=== PATIENT | male | born 1940 | race Caucasian/White ===

== ENCOUNTER 2023-10-07 11:28 | Emergency (ER) | payer MEDICARE, BC, SELFPAY ==
[2023-10-07 11:30] VITALS: BP 190/67
[2023-10-07 12:03] VITALS: BP 173/63
--- NOTE | 2023-10-07 12:21 | ED.GENMED ---
History of Present Illness
General
Chief Complaint: Sleep Disturbances
Source: patient
Exam Limitations: none
Time Seen by Provider: 10/07/23 12:05
History of Present Illness
History of Present Illness:
83-year-old male with history of atrial fibrillation has a [employer] pacemaker on Eliquis presents with 10 days to 2 weeks worth of increased difficulty sleeping secondary to increased work of breathing. No prior history of CHF or COPD. He denies
leg swelling or weight gain. He denies a cough. He states his breathing is only improved when he stands straight up. He lives independently at [facility]. He states he recently saw his [employer] consultant and had a pacemaker interrogation and
echocardiogram and EKG everything checked out.
Past History
Past History
ED Past Medical History: Arrthythmia (Atrial fibrillation) and HTN
Social History
Tobacco: Non-smoker
Phy Exam
Physical Exam
Physical Exam:
General: Well appearing male, with increased work of breathing
HEENT: nc/at
Heart: RRR, no murmurs
Lungs: Clear, no wheeze or rales
Abd: soft, nontender, nondistended
Ext: pitting edema b/l LE
Skin: warm, no rashes
Course
Orders/Labs/Results
Orders:
Orders
10/07/23 11:33
EKG [Electrocardiogram (*1)] Urgent
Reason for Study: Shortness of Breath
EKG- Treatment ONCE
10/07/23 12:20
Interrogate Pacemaker- Treatment ONCE
CR Chest - 2 Views Urgent
Comment:
Reason For Exam: sob
10/07/23 12:32
Complete Blood Count/With Diff Urgent
Comprehensive Metabolic Panel Urgent
NT-proBNP Urgent
Troponin I Urgent
10/07/23 15:08
Troponin I Urgent
Abnormal Lab Results
10/07/23 10/07/23
12:32 15:08
RDW 14.8 H %
(11.5-14.5)
MPV 11.5 H fL
(7.4-10.4)
BUN 27 H mg/dl
(9-20)
Glucose 117 H mg/dl
(70-99)
Troponin I 0.081 H* ng/ml 0.088 H* ng/ml
10/07/23 12:32
10/07/23 12:32
Vital Signs
Initial and Last Documented VS:
Initial Vital Signs
Pulse Resp BP Pulse Ox
60 18 190/67 98
10/07/23 11:30 10/07/23 11:30 10/07/23 11:30 10/07/23 11:30
Last Documented Vital Signs
Temp Pulse Resp BP Pulse Ox
97.5 F 60 16 173/63 97
10/07/23 15:28 10/07/23 12:04 10/07/23 12:04 10/07/23 12:03 10/07/23 12:07
Hog Handler consulted with Physician
Hog Handler consulted with physician?: Yes
MDM/Problems Addressed
Differential Diagnosis Includes:
Trouble sleeping secondary to difficulty breathing. Patient has a ventricular paced rhythm on EKG. No prior diagnosis of CHF but on differential today as well as sleep apnea. He tells me he had a normal echocardiogram in the recent past to his
[employer] consultant at [facility]. Anticoagulated. Do not suspect PE. Check labs including BNP and chest today. Pacemaker will be interrogated.
*Critical Care Note
Total Time (30-74mins, 75-104mins- exclusive of procedures): Not Applicable
Update Note
Update Note:
Patient evaluated multiple times. Initial troponin is 0. 081. Repeat troponin was 0.088. No chest pain. No significant delta. Do not suspect ACS. Reviewed x-ray report from radiologist with because of possible mild left lower lobe pneumonia.
When we questioned, the patient is coughing. Question possible involvement here. Nonetheless, patient does not want to stay in the hospital. Will start patient on low-dose of Lasix given the fluid retention 20 mg daily as well as an albuterol
inhaler with doxycycline for pneumonia. She will be given stable for discharge
ED Attending Note
-
Portions of this chart may have been created with voice recognition software.� Occasional wrong word or��sound alike� substitutions may have occurred due to the inherent limitations of voice recognition software.
Discharge Plan
Departure
Patient Disposition: Home (Routine Discharge)
Date of Disposition: 10/07/23
Time of Disposition: 16:25
Patient with high blood pressure during this ER visit?: No
Discharge Problem:
Shortness of breath, Pneumonia
Prescriptions:
New
doxycycline hyclate 100 mg tablet
100 mg PO BID Qty: 14 0RF
furosemide [Lasix] 20 mg tablet
20 mg PO DAILY Qty: 7 0RF
albuterol sulfate 90 mcg/actuation aerosol powdr breath activated
1 inh inhalation QID PRN (Reason: shortness of breath) Qty: 1 0RF
No Action
multivitamin Tablet
1 tab PO DAILY
Eliquis 5 mg tablet
5 mg PO BID
aspirin 81 mg Tablet,Delayed Release (Dr/Ec)
81 mg PO HS
Referrals:
UNKNOWN - PT DOES,NOT KNOW [Family Provider] -
Activity Restrictions/Additional Instructions:
Use antibiotic as directed. Use inhaler if needed. Take Lasix 20 mg once a day. Please follow-up closely with a doctor at your facility. Return if worse.
Interventions
Interventions:
*Risk Screen - Suicide Last Done: 10/07/23 11:30
*General Assessment Last Done: 10/07/23 11:30
*Neglect/Abuse Screening Last Done: 10/07/23 11:30
*ED COVID-19 Vaccine History Last Done: 10/07/23 11:30
ED- Neurological Assessment Last Done: 10/07/23 12:06
ED-Psychological Assessment Last Done: 10/07/23 12:06
Discharge Date and Time
Print Language: CROATIAN
[2023-10-07 12:44] LABS: % Basophils 0.5 % (0-2); % Eosinophils 2.3 % (0-6); % Immature Granulocytes 0.3 % (0-0.5); % Lymphocytes 23.8 % (20.5-51.1); % Monocytes 9.3 % (1.7-9.3); % Neutrophils 63.8 % (42.2-75.2); Absolute Eosinophils 0.2 10^3/uL (0-0.7); Absolute Lymphocytes 1.5 10^3/uL (1.2-3.4); Absolute Monocytes 0.6 10^3/uL (0.1-0.6); Absolute Neutrophils 4.1 10^3/uL (1.4-6.5); Hematocrit 43.1 % (39.0-52.0); Hemoglobin 14.8 g/dL (13.0-18.0); Mean Corp Hgb Conc. 34.3 g/dL (33.0-37.0); Mean Corpuscular Hgb 30.1 pg (27.0-31.0); Mean Corpuscular Volume 87.8 fL (80.0-94.0); Mean Platelet Volume 11.5 fL (7.4-10.4); Nucleated Red Blood Cells % 0 % (-); Platelet Count 173 10^3/uL (130-400); Red Blood Cell Count 4.91 10^6/uL (4.70-6.10); Red Cell Dist. Width 14.8 % (11.5-14.5); White Blood Cell Count 6.4 10^3/uL (4.8-10.8)
[2023-10-07 13:00] LABS: ALT (SGPT) 26 U/L (0-50); AST (SGOT) 45 U/L (17-59); Albumin 4.1 g/dl (3.5-5.0); Alkaline Phosphatase 96 U/L (38-126); Blood Urea Nitrogen 27 mg/dl (9-20); Calcium 9.5 mg/dl (8.4-10.2); Carbon Dioxide 26 mmol/L (22-30); Chloride 103 mmol/L (98-107); Glucose 117 mg/dl (70-99); Potassium 4.6 mmol/L (3.5-5.1); Sodium 135 mmol/L (135-145); Total Protein 6.5 g/dl (6.3-8.2); eGFR > 60.00
[2023-10-07 13:19] LABS: NT-proBNP 3550 pg/ml
[2023-10-07 13:29] LABS: Troponin I 0.081 ng/ml
[2023-10-07 15:08] VITALS: BP 180/72
[2023-10-07 15:50] LABS: Troponin I 0.088 ng/ml
[2023-10-07 16:00] VITALS: BP 164/60
[2023-10-07] MEDS: VIBRAMYCIN 100 MG PO (16:59)
== END 2023-10-07 17:16 | disposition home or self-care (01) ==
LOC: EMR 11:28
PROVIDERS: Physician Assistant; EMERGENCY PHYSICIAN Emergency Medicine
DX: R06.02 Shortness of breath (principal); J18.9 Pneumonia, unspecified organism; G47.00 Insomnia, unspecified; I48.91 Unspecified atrial fibrillation; I10 Essential (primary) hypertension; Z79.01 Long term (current) use of anticoagulants; Z95.0 Presence of cardiac pacemaker
CPT/HCPCS: 99283; 71046; 80053; 83880; 84484; 85025; 93005

== ENCOUNTER 2023-10-15 16:06 | Inpatient (IN) | payer MEDICARE, BC, SELFPAY ==
[2023-10-15 11:37] VITALS: BP 169/60
--- NOTE | 2023-10-15 12:16 | ED.GENMED ---
History of Present Illness
<Elizabeth Woodward PA-C - Last Filed: 10/15/23 20:09>
General
Chief Complaint: Breathing Problem
Source: patient
Exam Limitations: none
Time Seen by Provider: 10/15/23 11:42
Nursing documentation reviewed up to this point in time: agreed with
History of Present Illness
History of Present Illness:
Patient is an 83-year-old male history atrial fibrillation on Eliquis, hypertension, CAD status post stents with a pacemaker presenting for evaluation of shortness of breath worse when lying flat. Patient states symptoms been ongoing for the past 2
weeks and describes difficulty breathing and waking up 'gasping for air 'in the middle the night. Symptoms do definitely seem worse when he is lying flat or sitting and better while he is walking around. Patient was recently here about a week ago
with similar symptoms where a small left-sided pneumonia was discovered. He was discharged on a course of antibiotics and low-dose Lasix. Patient states that symptoms have remained unchanged.
Patient denies any associated chest pain, fever, chills, cough, dizziness, weight changes. No known history of heart failure.
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
Past History
<Elizabeth Woodward PA-C - Last Filed: 10/15/23 20:09>
Past History
ED Past Medical History: Arrthythmia (Atrial fibrillation) and HTN
Social History
Tobacco: Non-smoker
Review of Systems
<Elizabeth Woodward PA-C - Last Filed: 10/15/23 20:09>
Review of Systems
Allergies reviewed?: Yes
All Other Systems: ROS reviewed and negative except as documented in HPI and ROS
Phy Exam
<Elizabeth Woodward PA-C - Last Filed: 10/15/23 20:09>
Physical Exam
Physical Exam:
Vitals: Patient's vital signs are stable. Afebrile
General: Patient is well appearing, no acute distress
Skin: Warm and dry, no rashes or lesions
Head: Normocephalic, atraumatic
Eyes: Sclera nonicteric. EOMs intact. No nystagmus.
Throat: Protecting airway
Neck: Normal ROM, no cervical spine tenderness, no meningismus. No JVD
Cardiac: Regular rate and rhythm, no murmurs.
Pulm: Mildly increased work of breathing. Oxygen saturation 98 on room air. Scattered fine crackles at bilateral bases otherwise lungs clear.
Abdomen: No abdominal tenderness.
Extremities: 1+ pitting edema bilateral lower extremities. Great distal pulses.
Neuro: AAOx3. CN II-XII intact. No focal neurologic deficits.
Psychiatric: Normal affect.
Scores
<Elizabeth Woodward PA-C - Last Filed: 10/15/23 20:09>
Heart Failure Risk
Heart Failure Risk Score: Yes
History of Stroke or TIA: No
History of intubation for respiratory distress: No
Heart rate on ED arrival >/= 110: No
SaO2 <90% on arrival on room air: No
HR >/=110 during 3min walk test (or too ill to perform test): No
ECG has acute ischemic changes: No
Urea >/=12mmol/L (BUN 33.6mg/dL): No
Serum CO2>/=35mmol/L: No
Troponin I or T elevated to IL Level (0.4mg/dL): No
NT-proBNP >/=5,000ng/L (5,000pg/ml): No
HF Risk Score: 0
Admission Status: LOW RISK 2.8% Consider discharge to home with f/u visit to PCP/Installation Technician
Course
<Elizabeth Woodward PA-C - Last Filed: 10/15/23 20:09>
Orders/Labs/Results
Orders:
Orders
10/15/23 11:41
Electrocardiogram (*1) Urgent
Reason for Study: Shortness of Breath
EKG- Treatment ONCE
10/15/23 12:03
Interrogate Pacemaker- Treatment ONCE
10/15/23 12:04
CR Chest - 2 Views Urgent
Comment:
Reason For Exam: shortness of breath
10/15/23 12:44
Complete Blood Count/With Diff Urgent
Comprehensive Metabolic Panel Urgent
NT-proBNP Urgent
Troponin I Urgent
10/15/23 13:26
Azithromycin 500 mg/250 ml [Zithromax Infusion] 500 mg in 250 ml IV NOW
CefTRIAXone [Rocephin] 1,000 mg IV NOW STA
Furosemide [Lasix] 40 mg IV NOW STA
10/15/23 Dinner
Cholesterol Lowering
At Your Request: Full Participation
Does patient need a safe tray?: No
Cholesterol Lowering: Sodium, 2 Gram
10/15/23 15:29
Admit/Transfer Patient As Directed
Co-Sign Provider:
Level of Care: Inpatient admission
Assign to:: Telemetry
Physician / Group: Hospitalist
Diagnosis: Respiratory distress
Reason for Telemetry: Subacute Heart Failure
Date to Stop Telemetry: 10/17/23
Time to Stop Telemetry: 11:00
Reason for Hospitalization: respiratory distress
Expected length of stay greater than two midnights?: Yes
ELOS- Estimated Length of Stay in days: 3
I certify the patient meets the requirements for IP care: Yes
10/15/23 15:30
PRN Pain Medication Management As Directed
May give lesser potent ordered pain med per pt: Yes
preference::
Protocol:: Medication orders for pain may be administered in a
manner that supports deferring to patient preference
when the pt is:
- Requesting an ordered lesser potent pain medication.
Least to most potent pain medications are defined
as: acetaminophen < NSAID < tramadol < opioids
(morphine, oxycodone, hydromorphone).
- Requesting a lesser dose of the same medication IF
ORDERED.
- Requesting a less intrusive route of administration
if both routes are prescribed by the provider (PO <
IV).
10/15/23 15:31
Code Status As Directed
Resuscitation Status: Full Code
10/15/23 16:07
COVID-19 Antigen Urgent
Source: Nasal Swab
Procalcitonin Urgent
PCT Algorithmm Indication: Respiratory
Influenza A+B Rapid Molecular Urgent
RICARDO Source: Nasal Swab
Specimen Description:
10/15/23 17:45
HF DIETARY CONSULT Routine
HF EDUCATOR CONSULT Routine
Comment:
Activity As Directed
Activity Level: With Assistance
Intake/ Output As Directed
Frequency: Per unit guidelines
Patient Education As Directed
Type: CHF folder
Comment: give on admission. Document in Interdisciplinary Education record
Pneumatic Compression Sleeves As Directed
Type: Knee high
Sleep Apnea Assessment by RN As Directed
Comment:
Physician Instructions:
Vital Signs As Directed
Frequency: Other
Additional Instructions:: Q12 or per unit guidelines if more frequent.
Weight As Directed
Frequency: Daily
Type of Scale: Standing Scale
Comment: Daily morning weight. If unable to stand, use balanced bed scale.
Weight As Directed
Frequency: Once
Type of Scale: Standing Scale
Comment: Upon Admission. If unable to stand, use balanced bed scale.
Pulse Ox/cont/shift [RESP] Routine
Quantity: 1
Special Instructions: Daily pulse oximetry at rest. If greater than 92% at rest also obtain pulse oximetry
while ambulating as tolerated.
DX Deep Vein Thrombosis Video Routine
10/15/23 17:57
Troponin I Q6H
Comment: at admission & every 6 hours x 2 (3 total), ECG to be done with each level
10/15/23 18:00
Furosemide [Lasix] 40 mg IV BID AT 0800,1600
10/15/23 20:00
Apixaban [Eliquis] 5 mg PO BID
10/15/23 23:45
Troponin I Q6H
Comment: at admission & every 6 hours x 2 (3 total), ECG to be done with each level
10/16/23 05:45
Troponin I Q6H
Comment: at admission & every 6 hours x 2 (3 total), ECG to be done with each level
10/16/23 06:00
Echo 2D MMode Color/Doppler IN AM
Reason for Study: heart failure
Basic Metabolic Panel IN AM
Cardiovascular Evaluation IN AM
Complete Blood Count/No Diff IN AM
Magnesium IN AM
TSH Reflex To Free T4 IN AM
10/16/23 08:00
Multivitamin [Theragran] 1 tablet PO DAILY
10/17/23 06:00
Basic Metabolic Panel IN AM
10/17/23 11:00
DC Protocol for Telemetry ONCE
10/18/23 06:00
Basic Metabolic Panel IN AM
Abnormal Lab Results
10/15/23
12:44
RBC 4.58 L 10^6/uL
(4.70-6.10)
Absolute Monos (auto) 0.7 H 10^3/uL
(0.1-0.6)
Immature Gran % 0.7 H %
(0-0.5)
Monocytes % 10.8 H %
(1.7-9.3)
BUN 27 H mg/dl
(9-20)
Glucose 118 H mg/dl
(70-99)
Troponin I 0.087 H* ng/ml
Total Protein 5.8 L g/dl
(6.3-8.2)
10/15/23 12:44
10/15/23 12:44
Vital Signs
Initial and Last Documented VS:
Initial Vital Signs
Temp Pulse Resp BP Pulse Ox
97.5 F 61 18 169/60 98
10/15/23 11:37 10/15/23 11:37 10/15/23 11:37 10/15/23 11:37 10/15/23 11:37
Last Documented Vital Signs
Temp Pulse Resp BP Pulse Ox
97.8 F 61 18 148/52 95
10/15/23 19:52 10/15/23 19:52 10/15/23 19:52 10/15/23 19:52 10/15/23 19:52
<Jamshid Benites, DO - Last Filed: 10/15/23 12:39>
Orders/Labs/Results
Orders:
Orders
10/15/23 11:41
Electrocardiogram (*1) Urgent
Reason for Study: Shortness of Breath
EKG- Treatment ONCE
10/15/23 12:03
Interrogate Pacemaker- Treatment ONCE
10/15/23 12:04
CR Chest - 2 Views Urgent
Comment:
Reason For Exam: shortness of breath
10/15/23 12:44
Complete Blood Count/With Diff Urgent
Comprehensive Metabolic Panel Urgent
NT-proBNP Urgent
Troponin I Urgent
10/15/23 13:26
Azithromycin 500 mg/250 ml [Zithromax Infusion] 500 mg in 250 ml IV NOW
CefTRIAXone [Rocephin] 1,000 mg IV NOW STA
Furosemide [Lasix] 40 mg IV NOW STA
10/15/23 Dinner
Cholesterol Lowering
At Your Request: Full Participation
Does patient need a safe tray?: No
Cholesterol Lowering: Sodium, 2 Gram
10/15/23 15:29
Admit/Transfer Patient As Directed
Co-Sign Provider:
Level of Care: Inpatient admission
Assign to:: Telemetry
Physician / Group: Hospitalist
Diagnosis: Respiratory distress
Reason for Telemetry: Subacute Heart Failure
Date to Stop Telemetry: 10/17/23
Time to Stop Telemetry: 11:00
Reason for Hospitalization: respiratory distress
Expected length of stay greater than two midnights?: Yes
ELOS- Estimated Length of Stay in days: 3
I certify the patient meets the requirements for IP care: Yes
10/15/23 15:30
PRN Pain Medication Management As Directed
May give lesser potent ordered pain med per pt: Yes
preference::
Protocol:: Medication orders for pain may be administered in a
manner that supports deferring to patient preference
when the pt is:
- Requesting an ordered lesser potent pain medication.
Least to most potent pain medications are defined
as: acetaminophen < NSAID < tramadol < opioids
(morphine, oxycodone, hydromorphone).
- Requesting a lesser dose of the same medication IF
ORDERED.
- Requesting a less intrusive route of administration
if both routes are prescribed by the provider (PO <
IV).
10/15/23 15:31
Code Status As Directed
Resuscitation Status: Full Code
10/15/23 16:07
COVID-19 Antigen Urgent
Source: Nasal Swab
Procalcitonin Urgent
PCT Algorithmm Indication: Respiratory
Influenza A+B Rapid Molecular Urgent
RICARDO Source: Nasal Swab
Specimen Description:
10/15/23 17:45
HF DIETARY CONSULT Routine
HF EDUCATOR CONSULT Routine
Comment:
Activity As Directed
Activity Level: With Assistance
Intake/ Output As Directed
Frequency: Per unit guidelines
Patient Education As Directed
Type: CHF folder
Comment: give on admission. Document in Interdisciplinary Education record
Pneumatic Compression Sleeves As Directed
Type: Knee high
Sleep Apnea Assessment by RN As Directed
Comment:
Physician Instructions:
Vital Signs As Directed
Frequency: Other
Additional Instructions:: Q12 or per unit guidelines if more frequent.
Weight As Directed
Frequency: Daily
Type of Scale: Standing Scale
Comment: Daily morning weight. If unable to stand, use balanced bed scale.
Weight As Directed
Frequency: Once
Type of Scale: Standing Scale
Comment: Upon Admission. If unable to stand, use balanced bed scale.
Pulse Ox/cont/shift [RESP] Routine
Quantity: 1
Special Instructions: Daily pulse oximetry at rest. If greater than 92% at rest also obtain pulse oximetry
while ambulating as tolerated.
DX Deep Vein Thrombosis Video Routine
10/15/23 17:57
Troponin I Q6H
Comment: at admission & every 6 hours x 2 (3 total), ECG to be done with each level
10/15/23 18:00
Furosemide [Lasix] 40 mg IV BID AT 0800,1600
10/15/23 20:00
Apixaban [Eliquis] 5 mg PO BID
10/15/23 23:45
Troponin I Q6H
Comment: at admission & every 6 hours x 2 (3 total), ECG to be done with each level
10/16/23 05:45
Troponin I Q6H
Comment: at admission & every 6 hours x 2 (3 total), ECG to be done with each level
10/16/23 06:00
Echo 2D MMode Color/Doppler IN AM
Reason for Study: heart failure
Basic Metabolic Panel IN AM
Cardiovascular Evaluation IN AM
Complete Blood Count/No Diff IN AM
Magnesium IN AM
TSH Reflex To Free T4 IN AM
10/16/23 08:00
Multivitamin [Theragran] 1 tablet PO DAILY
10/17/23 06:00
Basic Metabolic Panel IN AM
10/17/23 11:00
DC Protocol for Telemetry ONCE
10/18/23 06:00
Basic Metabolic Panel IN AM
Abnormal Lab Results
10/15/23
12:44
RBC 4.58 L 10^6/uL
(4.70-6.10)
Absolute Monos (auto) 0.7 H 10^3/uL
(0.1-0.6)
Immature Gran % 0.7 H %
(0-0.5)
Monocytes % 10.8 H %
(1.7-9.3)
BUN 27 H mg/dl
(9-20)
Glucose 118 H mg/dl
(70-99)
Troponin I 0.087 H* ng/ml
Total Protein 5.8 L g/dl
(6.3-8.2)
10/15/23 12:44
10/15/23 12:44
Vital Signs
Initial and Last Documented VS:
Initial Vital Signs
Temp Pulse Resp BP Pulse Ox
97.5 F 61 18 169/60 98
10/15/23 11:37 10/15/23 11:37 10/15/23 11:37 10/15/23 11:37 10/15/23 11:37
Last Documented Vital Signs
Temp Pulse Resp BP Pulse Ox
97.8 F 61 18 148/52 95
10/15/23 19:52 10/15/23 19:52 10/15/23 19:52 10/15/23 19:52 10/15/23 19:52
<Elizabeth Woodward PA-C - Last Filed: 10/15/23 20:09>
MDM/Problems Addressed
Differential Diagnosis Includes:
Not limited to: Acute CHF, cardiac arrhythmia, pleural effusion, pneumonia, pericarditis, pneumothorax, doubt ACS or PE
MDM/Problems Addressed:
83-year-old male with history as documented presenting with persistent shortness of breath over the past few weeks worse when lying flat. Recently in emergency department 1 week ago and discharged with course of doxycycline after left lower lobe
pneumonia was noted. Patient denies any fever, chills�very occasional cough. No history of heart failure per patient. Patient is hypertensive, otherwise vital signs are stable on arrival. He is afebrile. His oxygenation is 90% on room air.
Physical exam as above. Patient is relatively well-appearing, appears in no apparent respiratory distress. Heart regular rate and rhythm. Fine crackles noted at the bases of his lungs bilaterally otherwise clear. He does have 1+ pitting edema of
his bilateral lower extremities. Labs initiated. No leukocytosis. Chemistry without any clinically significant abnormalities. Troponin was found to be mildly elevated at 0.087�which appears to be stable and chronic. Do not suspect ACS. BNP
elevated at 4060. Will obtain chest x-ray. Will interrogate pacemaker.
Chest x-ray noted. Cardiomegaly stable. Left lower lobe pneumonia slightly increased since prior chest x-ray 7 days ago. Patient without any infectious symptoms currently. Clinically I do feel symptoms are more consistent with a mild CHF
exacerbation. Although given findings on chest x-ray consistent with worsening pneumonia failing outpatient therapy�will admit patient for IV antibiotics, diuresis and further management. Will start patient on IV Rocephin/azithromycin. Will give
40 IV Lasix in emergency department. Discussed with hospitalist. Patient seen with attending physician
Chronic conditions affecting care:
Atrial fibrillation on Eliquis, CAD, hypertension
Acute Exacerbation and/or Progression of Chronic Illness:
Acutely hypertensive
<Elizabeth Woodward PA-C - Last Filed: 10/15/23 20:09>
*Radiology
Radiology exam reviewed: preliminary read by ED provider and radiology read reviewed (Left lower lobe pneumonia slightly increased)
*Pulse Oximetry
Patient hypoxic: no
*EKG
Interpreted by ED Provider?: Yes
EKG Intrepretation Date: 10/15/23
Interpretation: abnormal
Comparison EKG: no changes
Heart Rate: 60
Rate: normal
Rhythm: ventricular paced
Ischemia: no ischemia
*Production Expert Interpretation
Rate: normal
Interpretation: normal
Heart Rate: 60
Rhythm: ventricular paced
*Critical Care Note
Total Time (30-74mins, 75-104mins- exclusive of procedures): Not Applicable
Data Reviewed
Review of Other/Old Records Reveals: Labs (Troponin from 10/06 of 0.088. proBNP from 10/06 of 3550.), Records (Emergency department visit from 10/06. Diagnosed with left lower lobe pneumonia discharged with p.o. antibiotics and few days of
low-dose Lasix for possible CHF component) and Radiology Studies (Chest x-ray showing left lower lobe pneumonia from 10/06)
Source: previous hospital records
<Elizabeth Woodward PA-C - Last Filed: 10/15/23 20:09>
Patient Management
Discussion with other providers: Hospitalist
Escalation/DeEscalation of care consider admission/obs:
Admit for IV antibiotics, diuresis. Further evaluation of possible new onset acute CHF
ED Attending Note
<Elizabeth Woodward PA-C - Last Filed: 10/15/23 20:09>
-
Portions of this chart may have been created with voice recognition software.� Occasional wrong word or��sound alike� substitutions may have occurred due to the inherent limitations of voice recognition software.
<Jamshid Benites DO - Last Filed: 10/15/23 12:39>
ED Attending Note
Patient seen and examined by attending physician: Yes
I performed the substantive portion of visit, reviewed & personally made and approve the management plan that is documented in note by myself or RENEE.: Yes
I performed a history and physical exam of patient and discussed management with resident, I reviewed resident's note and agree with documented findings and plan of care.: Yes
ED Attending Note:
I evaluated the patient bedside. The patient has some faint rales. He reports some mild lower extremity edema that he is not concerned about but has no weight gain�he has had some weight loss. He cannot sleep because of the fact that he cannot
lay down flat at night. He reports no significant improvement after doxycycline was tried.
Discharge Plan
Departure
Patient Disposition: Admit
Date of Disposition: 10/15/23
Time of Disposition: 13:32
Presentation/result/management discussed w/ accepting MD/DO: Hospitalist
Discharge Problem:
Acute CHF (congestive heart failure), Left lower lobe pneumonia
Interventions
Interventions:
*Risk Screen - Suicide Last Done: 10/15/23 11:37
*General Assessment Last Done: 10/15/23 11:37
*Neglect/Abuse Screening Last Done: 10/15/23 11:37
ED- Fall Risk Assessment Last Done: 10/15/23 12:48
*ED COVID-19 Vaccine History Last Done: 10/15/23 12:47
*Nursing Disposition Last Done: 10/15/23 17:58
ED- Cardiac Assessment Last Done: 10/15/23 12:48
ED- Pulmonary Assessment Last Done: 10/15/23 12:48
Discharge Date and Time
Discharge Date/Time: 10/15/23 17:59
[2023-10-15 12:42] VITALS: BP 159/62
[2023-10-15 12:46] VITALS: BMI 23.8
[2023-10-15 12:54] LABS: % Basophils 0.5 % (0-2); % Eosinophils 1.3 % (0-6); % Immature Granulocytes 0.7 % (0-0.5); % Lymphocytes 25.5 % (20.5-51.1); % Monocytes 10.8 % (1.7-9.3); % Neutrophils 61.2 % (42.2-75.2); Absolute Eosinophils 0.1 10^3/uL (0-0.7); Absolute Lymphocytes 1.5 10^3/uL (1.2-3.4); Absolute Monocytes 0.7 10^3/uL (0.1-0.6); Absolute Neutrophils 3.7 10^3/uL (1.4-6.5); Hematocrit 39.8 % (39.0-52.0); Hemoglobin 13.8 g/dL (13.0-18.0); Mean Corp Hgb Conc. 34.7 g/dL (33.0-37.0); Mean Corpuscular Hgb 30.1 pg (27.0-31.0); Mean Corpuscular Volume 86.9 fL (80.0-94.0); Mean Platelet Volume 10.3 fL (7.4-10.4); Nucleated Red Blood Cells % 0 % (-); Platelet Count 161 10^3/uL (130-400); Red Blood Cell Count 4.58 10^6/uL (4.70-6.10); Red Cell Dist. Width 14.5 % (11.5-14.5)
[2023-10-15 13:03] LABS: ALT (SGPT) 23 U/L (0-50); AST (SGOT) 42 U/L (17-59); Albumin 3.5 g/dl (3.5-5.0); Alkaline Phosphatase 77 U/L (38-126); Blood Urea Nitrogen 27 mg/dl (9-20); Calcium 9.4 mg/dl (8.4-10.2); Carbon Dioxide 29 mmol/L (22-30); Chloride 103 mmol/L (98-107); Estimated Creatinine Clearance 53 ml/min; Glucose 118 mg/dl (70-99); Potassium 4.4 mmol/L (3.5-5.1); Sodium 135 mmol/L (135-145); Total Bilirubin 0.7 mg/dl (0.2-1.3); Total Protein 5.8 g/dl (6.3-8.2); eGFR 59.63
[2023-10-15 13:19] LABS: NT-proBNP 4060 pg/ml; Troponin I 0.087 ng/ml
[2023-10-15] MEDS: ROCEPHIN 1000 MG IV (14:53)
[2023-10-15] MEDS: LASIX 40 MG IV ×2 (14:54→18:21)
[2023-10-15] MEDS: ZITHROMAX INFUSION 250 IV (14:54)
--- NOTE | 2023-10-15 15:08 | HPS.HSE ---
Family Physician
-
Family Physician: * NONE
Chief Complaint
-
Difficulty breathing
History of Present Illness
83-year-old man with a history of atrial fibrillation on Eliquis, essential hypertension, CAD (status post stents with a pacemaker) comes in for evaluation of shortness of breath, worse when lying flat. He states that the symptoms have been ongoing
for the past 2 weeks, and he describes difficulty breathing, waking up 'gasping for air 'in the middle the night. He said he has not had reasonable sleep in 2 weeks. His symptoms are worse when he is lying flat or sitting and better while he is
walking around. He was recently here at about a week ago with similar symptoms. At that visit a small left-sided pneumonia was discovered. He was discharged on a course of oral antibiotics (doxy) and low-dose Lasix. He states that his
symptoms have remained unchanged. He denies any associated chest pain, fever, chills, cough, dizziness, weight changes. No known history of heart failure, but his daughter believes he likely has Chronic undiagnosed CHF. At the time of the
interview he was conversant and pleasant. He did not appear to be in distress.
Medical History
Past Medical History
Past Medical History: Reports Other
Additional Past Medical History:
Arrthythmia (Atrial fibrillation)
essential HTN
recent Dx of LLL PNA
Sepsis, unspecified organism
Bradyarrhythmia
Aortic root dilatation
PVCs (premature ventricular contractions)
CAD (coronary artery disease)
Aortic insufficiency
Carotid atherosclerosis
Mobitz type 1 second degree AV block
Stented coronary artery
Cardiac pacemaker in situ
Paroxysmal atrial fibrillation
Lower extremity edema
Hyperlipidemia
AV block, 3rd degree
Pacemaker
Renal insufficiency
Past Surgical History: Reports Other
Additional Past Surgical History:
See above
Social History
Tobacco: Non-smoker
Alcohol: None
Drug: None
Family History
Family History: Not pertinent
Allergies / Home Medications
Allergies reflects when Allergies were last updated in [facility].
Home Medications with original date entered in [facility]
Allergy/Medication List:
Allergies
Allergy/AdvReac Type Severity Reaction Status Date / Time
No Known Allergies Allergy Verified 10/07/23 11:30
Home Medications
apixaban 5 mg tablet (Eliquis) 5 mg PO BID 02/16/23
multivitamin 1 tab PO DAILY 02/16/23
doxycycline hyclate 100 mg tablet 100 mg PO BID #14 tabs 10/07/23
fexofenadine-pseudoephedrine ER 180 mg-240 mg tablet,ext.release 24 hr (Brittany-D 24 Hour) 1 tab PO DAILYPRN PRN chest congestion 10/15/23
ibuprofen 200 mg tablet (Advil) 400 mg PO Q8HPRN PRN mild pain 10/15/23
Review of Systems
-
History Source: Patient
A 12 point ROS was completed and negative except as noted: Yes
Physical Exam
Vital Signs
Vital Signs
Temp Pulse Resp BP Pulse Ox
97.5 F 60 19 159/62 97
10/15/23 11:37 10/15/23 14:34 10/15/23 14:34 10/15/23 12:42 10/15/23 13:30
Physical Exam
General: Well Developed, Well Nourished, No Apparent Distress, Comfortable and Conversant
HEENT: No Ptosis, Nose Appears Normal and Ears Appear Normal
Respiratory: Clear and Decreased Breath Sounds
Cardiac: S1/S2, Irregular Rhythm and Murmur
GI: Soft, Non Tender and Non Distended
Musculoskeletal: No Clubbing, No Cyanosis, Edema, Left Lower Extremity and Edema, Right Lower Extremity
Skin: Warm, Dry and Rash (purple stippling LE, likely venous stasis)
Neuro: Awake, Alert, Oriented and AO x 3
Psych: Calm
Laboratory Results
-
10/15/23 12:44
10/15/23 12:44
Laboratory Results
Total Bilirubin 0.7 mg/dl (0.2-1.3) 10/15/23 12:44
AST 42 U/L (17-59) 10/15/23 12:44
ALT 23 U/L (0-50) 10/15/23 12:44
Alkaline Phosphatase 77 U/L (38-126) 10/15/23 12:44
Troponin I 0.087 ng/ml H* 10/15/23 12:44
Data Reviewed
-
Lab Data: Labs Reviewed by me
Impression/Plan
-
IMPRESSION:
83 man with respiratory distress. Significant finding:
BUN/Creat 27/1.2
Troponin 0/087
BNP 4,000
CXR: Slightly increased left lower lobe pneumonia. Trace effusion.
ECG: Ventricular-paced rhythm
UNDERLYING RHYTHM is atrial fibrillation
ABNORMAL ECG
WHEN COMPARED WITH ECG OF 07-OCT-2023 12:08,
NO SIGNIFICANT CHANGE WAS FOUND
PLAN:
1. Respiratory distress, no fever, no WBC increase, elevated BNP - CHF more likely than PNA
Check pro-margi
Check echo
cycle troponins
Lasix given in ED, continue lasix
If pro-margi low, no need to continue abx
2. Elevated troponin - likely from CHF/renal failure
Cycle overnight
Telemetry
If remains in same level, outpatient management
3. Afib - continue eliquis
4. BUN/Creat > 20
Hold ibuprofen in setting of getting lasix
5. Complex PMH as described above
Follow daily, and keep in mind the following diagnoses:
essential HTN
recent Dx of LLL PNA
Past Sepsis, unspecified organism
Bradyarrhythmia
Aortic root dilatation
PVCs (premature ventricular contractions)
CAD (coronary artery disease)
Aortic insufficiency
Carotid atherosclerosis
Mobitz type 1 second degree AV block
Stented coronary artery
Cardiac pacemaker in situ
Paroxysmal atrial fibrillation
Lower extremity edema
Hyperlipidemia
AV block, 3rd degree
Pacemaker
Renal insufficiency
Full code
VCD for DVTp
[2023-10-15 16:45] LABS: COVID-19 Antigen Negative (Negative)
[2023-10-15 16:57] LABS: Procalcitonin < 0.05 ng/ml (0.0-0.25)
[2023-10-15 17:50] VITALS: BMI 23.8
[2023-10-15 18:17] VITALS: BMI 23.8
[2023-10-15 18:27] VITALS: BP 165/63
[2023-10-15 18:28] VITALS: BMI 23.8
[2023-10-15 18:39] LABS: Troponin I 0.096 ng/ml
[2023-10-15 19:52] VITALS: BP 148/52
[2023-10-15] MEDS: ELIQUIS 5 MG PO (20:04)
[2023-10-15 23:54] LABS: Troponin I 0.086 ng/ml
[2023-10-16] VITALS (7 sets, daily range): BP systolic 134–176; BP diastolic 43–63; BMI 23.0
[2023-10-16] MEDS: MELATONIN 5 MG PO ×2 (00:47→21:00)
[2023-10-16 07:20] LABS: Hematocrit 43.1 % (39.0-52.0); Hemoglobin 15.2 g/dL (13.0-18.0); Mean Corp Hgb Conc. 35.3 g/dL (33.0-37.0); Mean Corpuscular Hgb 30.9 pg (27.0-31.0); Mean Corpuscular Volume 87.6 fL (80.0-94.0); Mean Platelet Volume 11.5 fL (7.4-10.4); Platelet Count 173 10^3/uL (130-400); Red Blood Cell Count 4.92 10^6/uL (4.70-6.10); Red Cell Dist. Width 14.1 % (11.5-14.5); White Blood Cell Count 6.8 10^3/uL (4.8-10.8)
[2023-10-16 07:41] LABS: Troponin I 0.104 ng/ml
[2023-10-16 07:45] LABS: Blood Urea Nitrogen 30 mg/dl (9-20); Calcium 9.6 mg/dl (8.4-10.2); Carbon Dioxide 30 mmol/L (22-30); Chloride 100 mmol/L (98-107); Estimated Creatinine Clearance 53 ml/min; Glucose 91 mg/dl (70-99); HDL Cholesterol 47 mg/dl; LDL Cholesterol, Calculated 102 mg/dl; Potassium 4.2 mmol/L (3.5-5.1); Sodium 136 mmol/L (135-145); Total Cholesterol 162 mg/dl (50-199); Triglyceride 69 mg/dl (10-149); Very Low Density Lipoprotein 13 mg/dl (0-30); eGFR 59.63
[2023-10-16 08:15] LABS: TSH Reflex To Free T4 2.62 uIU/ml (0.47-4.68)
[2023-10-16] MEDS: THERAGRAN 1 TABLET PO (09:50)
[2023-10-16] MEDS: ELIQUIS 5 MG PO ×2 (09:50→21:00)
[2023-10-16] MEDS: LASIX 40 MG IV ×2 (09:50→16:55)
[2023-10-16] MEDS: FLUSH (NSS) 1 FLUSH IV ×3 (09:51→16:55)
[2023-10-16] MEDS: UNASYN IV ×3 (10:21→22:37)
--- NOTE | 2023-10-16 13:15 | W.PN.HOSP.TC ---
Today's Communication/Plan
-
IV diuretics
Unasyn for empiric abx therapy
Cards Consult
Trend trops until peak
Assessment / Plan
Assessment / Plan
Physical Exam
General: Well Developed, Well Nourished, No Apparent Distress, Comfortable and Conversant
HEENT: No Ptosis, Nose Appears Normal and Ears Appear Normal
Respiratory: Clear and Decreased Breath Sounds
Cardiac: S1/S2, Irregular Rhythm and Murmur
GI: Soft, Non Tender and Non Distended
Musculoskeletal: No Clubbing, No Cyanosis, Edema, Left Lower Extremity and Edema, Right Lower Extremity
Skin: Warm, Dry and Rash (purple stippling LE, likely venous stasis)
Neuro: Awake, Alert, Oriented and AO x 3
Psych: Calm
#Acute HFpEF
#Pleural Effusion
-IV Lasix 40mg daily
-ECHO: 50-55%, Moderate to severe LVH
-Cards Consulted
#Elevated Troponin
-Most likely nonischemic myocardial injury secondary to acute HFpEF
� Continue to monitor with diuresis
� No chest pain
� No regional wall motion abnormalities on echo
� May benefit from stress test outpatient
#?Pneumonia
-empiric abx - Unasyn x 5 day course of abx
-Incentive [place]
#Afib
#PPM, Hx of 3rd degree AV block
-Cont Eliquis
-Rate under control
#CAD
-on eliquis, i do not see any antiplatelet regimen on med rec
-f/u cards outpatient
#DVT ppx
-Eliquis
Total time spent on today's encounter was 50 minutes which included time spent in counseling the patient/family regarding diagnosis and treatment plan as listed above, goals of care, and symptom management. Case was discussed with nursing staff,
specialists, and care coordinators/case management. All labs and imaging personally reviewed by me. Remainder the time spent in detailed review of previous records, lab data, imaging, and other medical provider documentation.
Anticipated Discharge: 24 - 48 hours
Subjective/Interval History
-
Date of Service: October 16, 2023
feels better
Objective Data
-
Labs:
Laboratory Results
10/16/23
06:36
WBC 6.8
Hgb 15.2
Hct 43.1
Plt Count 173
Sodium 136
Potassium 4.2
Chloride 100
Carbon Dioxide 30
BUN 30 H
Creatinine 1.2
Glucose 91
Calcium 9.6
Vital Signs:
Vital Signs
Temp Pulse Resp BP Pulse Ox
97.5 F 61 18 156/60 98
10/16/23 11:36 10/16/23 11:36 10/16/23 11:36 10/16/23 11:36 10/16/23 11:36
I&O
10/15/23 10/16/23 10/17/23
06:59 06:59 06:59
Intake Total 580 / 580
Output Total 150 / 150
Balance 430 / 430
Review of Systems
-
History Source: Patient
All other systems: Not reviewed unless documented
Data Reviewed
-
Diagnostic Radiology: Image personally visualized and interpreted and Report Reviewed by me
Medical Tests (Nuc Med, Echo etc): Image personally visualized and interpreted and Report Reviewed by me
Labs: Labs Reviewed by me
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
--- NOTE | 2023-10-16 15:25 | CM ---
Alert awake oriented patient who lives alone at [facility] independent living. He is independent in driving and all activities of daily living.He has supportive daughters Elinor ([place] [employer]) and Lakeisha . Offered Vn he declined.
No VN hx /No SNF hx
No adaptive devices.
Pharmacy [facility]
PCP Does not have on PCP list given
PLAN Home no anticipated needs
--- NOTE | 2023-10-16 15:56 | PTCARENOTE ---
Pt AAO x3, LEIGH well, ambulatory in room, chian well. VSS. Telemetry:Afib with V-pacing. On room air- pulse ox 94%, pt with (+) slight BACON; denies SOB/cough. Encouraging use od IS q 1 hr while awake; pt compliant. Abd soft, rounded, china PO well.
Voiding large amts clear yellow urine in urinal. Resting in bed at present, no c/o. Will continue to monitor.
[2023-10-16] MEDS: KCL 20 MEQ PO (16:55)
[2023-10-16] MEDS: ASPIR LOW (ENTERIC COATED) 81 MG PO (16:55)
[2023-10-16] MEDS: LIPITOR 20 MG PO (18:14)
[2023-10-16] MEDS: FLUSH (NSS) 2 FLUSH IV (22:38)
[2023-10-16 23:52] LABS: Troponin I 0.093 ng/ml
[2023-10-17 03:41] VITALS: BP 139/43
[2023-10-17] MEDS: UNASYN IV ×2 (04:49→08:21)
[2023-10-17 06:00] VITALS: BMI 22.3
[2023-10-17 06:31] LABS: Troponin I 0.095 ng/ml
[2023-10-17 06:37] LABS: Hematocrit 46.7 % (39.0-52.0); Hemoglobin 16.3 g/dL (13.0-18.0); Mean Corp Hgb Conc. 34.9 g/dL (33.0-37.0); Mean Corpuscular Hgb 30.6 pg (27.0-31.0); Mean Corpuscular Volume 87.8 fL (80.0-94.0); Mean Platelet Volume 11.2 fL (7.4-10.4); Platelet Count 169 10^3/uL (130-400); Red Blood Cell Count 5.32 10^6/uL (4.70-6.10); Red Cell Dist. Width 13.8 % (11.5-14.5); White Blood Cell Count 6.2 10^3/uL (4.8-10.8)
[2023-10-17 06:54] LABS: ALT (SGPT) 21 U/L (0-50); AST (SGOT) 38 U/L (17-59); Albumin 3.7 g/dl (3.5-5.0); Alkaline Phosphatase 99 U/L (38-126); Blood Urea Nitrogen 33 mg/dl (9-20); Calcium 9.5 mg/dl (8.4-10.2); Carbon Dioxide 28 mmol/L (22-30); Chloride 98 mmol/L (98-107); Estimated Creatinine Clearance 56 ml/min; Glucose 92 mg/dl (70-99); Potassium 3.9 mmol/L (3.5-5.1); Sodium 137 mmol/L (135-145); Total Bilirubin 0.9 mg/dl (0.2-1.3); Total Protein 6.2 g/dl (6.3-8.2); eGFR > 60.00
[2023-10-17 07:40] VITALS: BP 151/52
[2023-10-17] MEDS: LASIX 40 MG IV (08:18)
[2023-10-17] MEDS: ELIQUIS 5 MG PO (08:20)
[2023-10-17] MEDS: ASPIR LOW (ENTERIC COATED) 81 MG PO (08:21)
[2023-10-17] MEDS: THERAGRAN 1 TABLET PO (08:21)
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
--- NOTE | 2023-10-17 11:00 | PN.CDI ---
CDI
- -
CDI:
Physician Documentation Request
Admit Date: 10/15/23 16:06
Dear Doctor Tani,
Please review the following and provide your response in the progress notes.
Clinical Indicators:
- 10/16 Cardiology 'Acute on chronic heart failure with preserved ejection fraction'
- 10/15 PN 'Acute HFpEF'
- per H&P 'No known history of heart failure, but his daughter believes he likely has Chronic undiagnosed CHF'
In an attempt to clarify potentially conflicting documentation, please clarify the acuity of the HFpEF
Acute HFpEF
Acute on chronic HFpEF
Other
Use of terms such as suspected, likely, concern for, or probable (associated with a specific diagnosis that is being evaluated, monitored, or treated as if it exists) are acceptable and can be coded in the inpatient setting, when documented at the
time of discharge.
Thank you,
Christopher Simms RN
CDI Specialist
Please use your independent medical judgment in providing your response.
--- NOTE | 2023-10-17 12:28 | W.PN.HOSP.TC ---
Addendum entered and electronically signed by Nemesio Freire MD 10/20/23 16:54:
Acute on chronic HFpEF
Addendum entered and electronically signed by Nemesio Freire MD 10/18/23 17:04:
[id number]
Original Note:
Today's Communication/Plan
-
augmentin to complete 5 day abx course
lasix 40mg daily
daily weights, Low Na diet
ASA, statin
F/u Cards, PCP outpatient
BMP in 3-5 days
Assessment / Plan
Assessment / Plan
Physical Exam
General: Well Developed, Well Nourished, No Apparent Distress, Comfortable and Conversant
HEENT: No Ptosis, Nose Appears Normal and Ears Appear Normal
Respiratory: Clear and Decreased Breath Sounds
Cardiac: S1/S2, Irregular Rhythm and Murmur
GI: Soft, Non Tender and Non Distended
Musculoskeletal: No Clubbing, No Cyanosis, Edema, Left Lower Extremity and Edema, Right Lower Extremity
Skin: Warm, Dry and Rash (purple stippling LE, likely venous stasis)
Neuro: Awake, Alert, Oriented and AO x 3
Psych: Calm
#Acute HFpEF
#Pleural Effusion
-IV Lasix 40mg BID - switched to Lasix 40mg daily
-BMP in 5-7 days
-NA restriction, Fluid restriction, daily weights
-F/u cardiology outpatient
-ECHO: 50-55%, Moderate to severe LVH
-Cards Consulted
#Elevated Troponin
-Most likely nonischemic myocardial injury secondary to acute HFpEF
� Continue to monitor with diuresis
� No chest pain
� No regional wall motion abnormalities on echo
� May benefit from stress test outpatient
-Start ASA, resume statin
#Pneumonia
-empiric abx - Unasyn ->switch to Augmentin to complete x 5 day course of abx
-Incentive Joey
#Afib
#PPM, Hx of 3rd degree AV block
-Cont Eliquis
-Rate under control
#CAD
-on eliquis
-f/u cards outpatient
-ASA, Statin
#DVT ppx
-Eliquis
More than 30 minutes spent in discharge including
Final examination of the patient
Summarizing hospital stay
Instructions for continuing care to all relevant caregivers
Preparation of discharge records, prescriptions, and referral forms
Total time spent (35 in minutes):
Anticipated Discharge: Today
Subjective/Interval History
-
Date of Service: October 17, 2023
feeling better, moreira improved
Objective Data
-
Labs:
Laboratory Results
10/17/23
05:32
WBC 6.2
Hgb 16.3
Hct 46.7
Plt Count 169
Sodium 137
Potassium 3.9
Chloride 98
Carbon Dioxide 28
BUN 33 H
Creatinine 1.1
Glucose 92
Calcium 9.5
Total Bilirubin 0.9
AST 38
ALT 21
Alkaline Phosphatase 99
Vital Signs:
Vital Signs
Temp Pulse Resp BP Pulse Ox
97.5 F 61 18 151/72 96
10/17/23 07:40 10/17/23 08:18 10/17/23 07:40 10/17/23 08:18 10/17/23 07:40
I&O
10/16/23 10/17/23 10/18/23
06:59 06:59 06:59
Intake Total 580 / 580 1200 / 1200
Output Total 150 / 150 2100 / 2100
Balance 430 / 430 -900 / -900
Review of Systems
-
History Source: Patient
All other systems: Not reviewed unless documented
Data Reviewed
-
Diagnostic Radiology: Image personally visualized and interpreted and Report Reviewed by me
Medical Tests (Nuc Med, Echo etc): Image personally visualized and interpreted and Report Reviewed by me
Labs: Labs Reviewed by me
--- NOTE | 2023-10-17 12:31 | W.DS.TRANS ---
DC Summary - Business Applications Manager
-
Discharge Instructions:
Sleep Apnea Risk Intermediate
Discharge Diagnosis/Procedures Acute HFpEF
Diet Low Fat,Low Cholesterol,Restrict fluids to 48 oz
,2 Gram Sodium
Activity As tolerated
Blood Work BMP 7-10 days after discharge
Specialty Instructions Weigh Daily
Instructions: *[facility] Heart Failure Instructions
Stand-Alone Forms:
Changes to Home Medications: Yes
Discharge Medications:
DC Medications w/original date entered in [facility]
apixaban 5 mg tablet (Eliquis) 5 mg PO BID 02/16/23
multivitamin 1 tab PO DAILY 02/16/23
fexofenadine-pseudoephedrine ER 180 mg-240 mg tablet,ext.release 24 hr (Brittany-D 24 Hour) 1 tab PO DAILYPRN PRN chest congestion 10/15/23
ibuprofen 200 mg tablet (Advil) 400 mg PO Q8HPRN PRN mild pain 10/15/23
amoxicillin 875 mg-potassium clavulanate 125 mg tablet 1 tab PO Q12H 4 days #8 tabs 10/17/23
aspirin 81 mg tablet,delayed release 81 mg PO DAILY 30 days #30 tabs 10/17/23
atorvastatin 20 mg tablet 20 mg PO QPM 30 days #30 tabs 10/17/23
furosemide 40 mg tablet (Lasix) 40 mg PO DAILY 30 days #30 tabs 10/17/23
Home Medication Changes
amoxicillin 875 mg-potassium clavulanate 125 mg tablet 1 tab PO Q12H 4 days #8 tabs 10/17/23
aspirin 81 mg tablet,delayed release 81 mg PO DAILY 30 days #30 tabs 10/17/23
atorvastatin 20 mg tablet 20 mg PO QPM 30 days #30 tabs 10/17/23
furosemide 40 mg tablet (Lasix) 40 mg PO DAILY 30 days #30 tabs 10/17/23
Pending Results: No
--- NOTE | 2023-10-17 15:00 | CM ---
MD entered order for discharge.
Spoke with pt in room . He said he was ready for dc.
He lives at [facility].
Offered VN he declined need.
Pt said he would call an Uber for transport home.
PLAN Home no needs
--- NOTE | 2023-10-18 11:33 | W.HF.CON ---
Heart Failure
- LV Function
Left ventricular function study result: LV Ejection fraction >40%
Ejection Fraction Percentage: 50-55
- ARNI
Patient already on ARNI: No
Heart Failure ARNI Not Indicated: LV Ejection Fraction >/= 40%
- ACEI/ARB
Patient already on ACEI/ARB: No
Heart Failure ACEI/ARB Not Indicated: LV Ejection Fraction > 40%
- Beta Hiren
Patient already on Evidence Based Beta Hiren: No
Heart Failure Evidence Based Beta Hiren Not Indicated: LV Ejection Fraction > 40%
- Mineralocorticord Receptor Antagonist
Patient already on MRA: No
Heart Failure MRA Not Indicated: LV Ejection Fraction > 40%
- SGLT-2 Inhibitor
Patient already on SGLT-2 Inhibitor: No
Heart Failure SGLT-2 Inhibitor Not Indicated: LV Ejection Fraction >40%
- Afib Anticoagulation
Patient already on Anticoagulation for Afib: Yes
- NYHA CHF Classification
NYHA CHF Classification Level: Class III - Symptoms w/ min exertion, interferes w/ nml daily activity
- ACC/AHA Stage
ACC/AHA Stage: Stage C: Symptomatic Heart Failure
== END 2023-10-17 14:36 | disposition home or self-care (01) | DRG 291 ==
LOC: 4 EAST ACU 16:06
PROVIDERS: Physician Assistant; ADMITTING PHYSICIAN Internal Medicine; ATTENDING PHYSICIAN Internal Medicine; CONSULT PHYSICIAN Internal Medicine Cardiovascular Disease; EMERGENCY PHYSICIAN Emergency Medicine
DX: I13.0 Hypertensive heart and chronic kidney disease with heart failure and stage 1 through stage 4 chronic kidney disease, or unspecified chronic kidney disease (principal); I50.33 Acute on chronic diastolic (congestive) heart failure; J18.9 Pneumonia, unspecified organism; I44.2 Atrioventricular block, complete; I48.21 Permanent atrial fibrillation; J91.8 Pleural effusion in other conditions classified elsewhere; I35.1 Nonrheumatic aortic (valve) insufficiency; I35.8 Other nonrheumatic aortic valve disorders; N18.9 Chronic kidney disease, unspecified; I77.810 Thoracic aortic ectasia; I65.29 Occlusion and stenosis of unspecified carotid artery; I5A Non-ischemic myocardial injury (non-traumatic); Z79.01 Long term (current) use of anticoagulants; E78.5 Hyperlipidemia, unspecified; I25.10 Atherosclerotic heart disease of native coronary artery without angina pectoris; Z95.5 Presence of coronary angioplasty implant and graft; R06.03 Acute respiratory distress; Z79.899 Other long term (current) drug therapy; Z86.16 Personal history of COVID-19; Z87.891 Personal history of nicotine dependence; Z95.0 Presence of cardiac pacemaker
CPT/HCPCS: 71046; 80048; 80053; 80061; 83735; 83880; 84145; 84443; 84484; 85025; 85027; 87502; 87811; 93005; 93306; 96365; 96375; 99285